=== PATIENT | female | born 1955 | race Two or more races ===

== ENCOUNTER → 2023-10-02 | Outpatient (CLI) | payer MEDICARE, MEDICAID ==
[2023-10-02 10:11] LABS: Hematocrit 37.7 % (36.0-46.0); Hemoglobin 12.4 g/dL (12.2-16.2); Mean Corpuscular Hemoglobin 31.1 pg (28.0-32.0); Mean Corpuscular Hgb Conc. 32.9 g/dL (32.0-36.0); Mean Corpuscular Volume 94.6 fL (80.0-100.0); Red Blood Cells 3.98 10^6/uL (4.0-5.20); Red Cell Distribution Width 14.5 % (11.8-14.3); White Blood Cell 6.6 10^3/uL (4.4-10.8)
[2023-10-02 10:15] LABS: Band Neutrophils % (manual) 0; Basophils % (manual) 0 (0.0-2.0); Blast Cells 0; Metamyelocytes % 0; Myelocytes % 0; Promyelocytes % 0; Reactive Lymphocytes 0
[2023-10-02 10:18] LABS: Alanine Aminotransferase 16 U/L (7-40); Albumin 4.4 g/dL (3.2-4.8); Alkaline Phosphatase 70 U/L (46-116); Anion Gap 6 (5-15); Aspartate Aminotransferase 13 U/L (13-40); BUN/Creatinine Ratio 19.4 (10.0-20.0); Blood Urea Nitrogen 12 mg/dL (9-23); Calcium 9.5 mg/dL (8.5-10.1); Carbon Dioxide 27 mmol/L (20-30); Chloride 110 mmol/L (98-107); Glucose 130 mg/dL (74-106); LDL Cholesterol 62 mg/dL (< 100); Potassium 3.7 mmol/L (3.5-5.1); Sodium 143 mmol/L (136-145); Triglycerides 115 mg/dL (< 150)
[2023-10-02 10:19] LABS: Cholesterol 129 mg/dL (< 200)
[2023-10-02 10:20] LABS: Bilirubin, Total 0.5 mg/dL (0.2-1.0); HDL Cholesterol 50 mg/dL (40-59); Total Protein 7.1 g/dL (5.7-8.2)
[2023-10-02 10:50] LABS: Eosinophils % (manual) 22 (0-7); Lymphocytes % (manual) 37 (10.0-50.0); Monocytes % (manual) 6 (0-12)
[2023-10-02 10:51] LABS: Platelet Estimate Adequate
== END | disposition home or self-care (01) ==
LOC: LAB 08:52
PROVIDERS: ATTEND Nurse Practitioner Gerontology
DX: Z13.1 Encounter for screening for diabetes mellitus (principal); Z29.9 Encounter for prophylactic measures, unspecified; I10 Essential (primary) hypertension; E78.49 Other hyperlipidemia; M85.80 Other specified disorders of bone density and structure, unspecified site; R73.03 Prediabetes
CPT/HCPCS: 36415; 80053; 80061; 82306; 83036; 85007; 85027

== ENCOUNTER → 2024-06-10 | Outpatient (CLI) | payer MEDICARE, MEDICAID ==
[2024-06-10 12:24] LABS: Alanine Aminotransferase 20 U/L (7-40); Albumin 4.4 g/dL (3.2-4.8); Alkaline Phosphatase 71 U/L (46-116); Anion Gap 6 (5-15); Aspartate Aminotransferase 13 U/L (13-40); BUN/Creatinine Ratio 16.1 (10.0-20.0); Bilirubin, Total 0.4 mg/dL (0.2-1.0); Blood Urea Nitrogen 15 mg/dL (9-23); Calcium 10.1 mg/dL (8.7-10.4); Carbon Dioxide 27 mmol/L (20-31); Chloride 110 mmol/L (98-107); Glucose 149 mg/dL (74-106); Potassium 4.3 mmol/L (3.5-5.1); Sodium 143 mmol/L (136-145); Total Protein 7.6 g/dL (5.7-8.2)
== END | disposition home or self-care (01) ==
LOC: LAB 10:45
PROVIDERS: ATTEND Internal Medicine
DX: I10 Essential (primary) hypertension (principal); E55.9 Vitamin D deficiency, unspecified; Z79.899 Other long term (current) drug therapy; R73.03 Prediabetes
CPT/HCPCS: 36415; 80053; 82306; 83036

== ENCOUNTER 2025-01-20 09:25 | Outpatient (CLI) | payer MEDICARE, MEDICAID ==
[2025-01-20 09:56] LABS: Hematocrit 38.8 % (36.0-46.0); Hemoglobin 13.1 g/dL (12.2-16.2); Mean Corpuscular Hemoglobin 31.5 pg (28.0-32.0); Mean Corpuscular Hgb Conc. 33.8 g/dL (32.0-36.0); Mean Corpuscular Volume 93.4 fL (80.0-100.0); Platelet Count (auto) 265 10^3/uL (140-450); Red Blood Cells 4.16 10^6/uL (4.0-5.20); White Blood Cell 8.2 10^3/uL (4.4-10.8)
[2025-01-20 09:59] LABS: Urine Bacteria None Seen /hpf (None Seen)
[2025-01-20 10:01] LABS: Band Neutrophils % (manual) 0; Basophils % (manual) 0 (0.0-2.0); Blast Cells 0; Metamyelocytes % 0; Myelocytes % 0; Promyelocytes % 0; Reactive Lymphocytes 0
[2025-01-20 10:12] LABS: Urine Blood TRACE /uL (Negative); Urine Clarity Turbid (Clear); Urine Color Light-Yellow (Yellow); Urine Protein, UAD Negative (Negative); Urine Specific Gravity 1.011 (1.001-1.035); Urine Squamous Epithelial Cell MOD /hpf (<5); Urine Urobilinogen Normal (Negative); Urine WBC 7 /HPF (0-5)
[2025-01-20 10:13] LABS: Alanine Aminotransferase 16 U/L (7-40); Albumin 4.5 g/dL (3.2-4.8); Alkaline Phosphatase 80 U/L (46-116); Anion Gap 7 (5-15); Aspartate Aminotransferase 13 U/L (13-40); BUN/Creatinine Ratio 15.5 (10.0-20.0); Bilirubin, Total 0.4 mg/dL (0.2-1.0); Blood Urea Nitrogen 11 mg/dL (9-23); Carbon Dioxide 28 mmol/L (20-31); Cholesterol 160 mg/dL (< 200); HDL Cholesterol 48 mg/dL (40-59); LDL Cholesterol 88 mg/dL (< 100); Potassium 4.1 mmol/L (3.5-5.1); Sodium 144 mmol/L (136-145); Total Protein 7.8 g/dL (5.7-8.2)
[2025-01-20 10:14] LABS: Chloride 109 mmol/L (98-107); Glucose 125 mg/dL (74-106); Triglycerides 161 mg/dL (< 150)
[2025-01-20 10:15] LABS: Eosinophils % (manual) 18 (0-7); Lymphocytes % (manual) 30 (10.0-50.0); Monocytes % (manual) 1 (0-12); Platelet Estimate Adequate
[2025-01-20 10:33] LABS: Creatinine, Urine 63.5 mg/dL (30.0-125.0)
== END 2025-01-20 17:00 | disposition home or self-care (01) ==
LOC: LAB 09:25
PROVIDERS: ATTEND Internal Medicine
DX: I13.10 Hypertensive heart and chronic kidney disease without heart failure, with stage 1 through stage 4 chronic kidney disease, or unspecified chronic kidney disease (principal); N18.2 Chronic kidney disease, stage 2 (mild); E55.9 Vitamin D deficiency, unspecified; R73.03 Prediabetes
CPT/HCPCS: 36415; 80053; 80061; 81001; 82043; 82570; 83036; 84439; 84443; 85007; 85027

== ENCOUNTER 2025-01-28 09:10 | Outpatient (CLI) | payer MEDICARE, MEDICAID ==
[2025-01-28 09:14] LABS: Urine Bacteria None Seen /hpf (None Seen)
[2025-01-28 09:39] LABS: Urine Blood TRACE /uL (Negative); Urine Clarity Clear (Clear); Urine Color Light-Yellow (Yellow); Urine Protein, UAD Negative (Negative); Urine Specific Gravity 1.019 (1.001-1.035); Urine Squamous Epithelial Cell FEW /hpf (<5); Urine Urobilinogen Normal (Negative); Urine WBC < 1 /HPF (0-5); Urine pH 6.5 (5.0-9.0)
[2025-01-28 10:35] LABS: Creatinine, Urine 78.41 mg/dL (30.0-125.0)
== END 2025-01-28 17:00 | disposition home or self-care (01) ==
LOC: LAB 09:10
PROVIDERS: ATTEND Internal Medicine
DX: I12.9 Hypertensive chronic kidney disease with stage 1 through stage 4 chronic kidney disease, or unspecified chronic kidney disease (principal); N18.2 Chronic kidney disease, stage 2 (mild); R73.03 Prediabetes; R82.90 Unspecified abnormal findings in urine
CPT/HCPCS: 36415; 81001; 82043; 82570

== ENCOUNTER → 2025-02-26 | Outpatient (CLI) | payer MEDICARE, MEDICAID ==
[2025-02-26 11:20] LABS: Chloride 107 mmol/L (98-107); Potassium 4.1 mmol/L (3.5-5.1); Sodium 143 mmol/L (136-145)
[2025-02-26 11:21] LABS: Anion Gap 7 (5-15); Calcium 10.0 mg/dL (8.7-10.4); Carbon Dioxide 29 mmol/L (20-31)
[2025-02-26 11:27] LABS: BUN/Creatinine Ratio 14.5 (10.0-20.0); Blood Urea Nitrogen 10 mg/dL (9-23); Glucose 127 mg/dL (74-106)
== END | disposition home or self-care (01) ==
LOC: LAB 10:29
PROVIDERS: ATTEND Internal Medicine
DX: I12.9 Hypertensive chronic kidney disease with stage 1 through stage 4 chronic kidney disease, or unspecified chronic kidney disease (principal); N18.2 Chronic kidney disease, stage 2 (mild)
CPT/HCPCS: 36415; 80048